=== PATIENT | female | born 1970 | race Hispanic/Latino ===

== ENCOUNTER 2018-06-04 13:31 | Emergency (ER) | payer MEDICARE, MEDICAID ==
[2018-06-04 14:43] LABS: Hemoglobin 9.2 g/dL (12.0-16.0); Mean Corpuscular HGB CONC 32.8 g/dL (32.0-36.0); Mean Corpuscular Hemoglobin 24.1 pg (27.0-31.0); Mean Corpuscular Volume 73.5 fL (78.0-98.0); Mean Platelet Volume 7.9 fL (7.4-10.4); Platelet Count 306 thou/uL (130-400); Red Blood Cell (RBC) Count 3.82 mill/uL (4.20-5.40); White Blood Cell (WBC) Count 6.8 thou/uL (4.8-10.8)
[2018-06-04 15:01] LABS: ALT (SGPT) 20 U/L (8-55); AST (SGOT) 20 U/L (5-34); Albumin 3.7 g/dL (3.5-5.0); Alkaline Phosphatase 66 U/L (40-150); Anion Gap 12 mmol/L (10-20); BUN (Urea Nitrogen) 11 mg/dL (7.0-18.7); Bilirubin, Total 0.4 mg/dL (0.2-1.2); Calc. Creatinine Clearance 0 mL/min (70-130); Calcium 8.5 mg/dL (7.8-10.44); Carbon Dioxide 20 mmol/L (22-29); Chloride 108 mmol/L (98-107); Estimated GFR-MDRD 83; Globulin 2.9 g/dL (2.4-3.5); Glucose 122 mg/dL (70-105); Potassium 3.6 mmol/L (3.5-5.1); Protein, Total 6.6 g/dL (6.0-8.3); Sodium 136 mmol/L (136-145)
[2018-06-04 15:03] LABS: #Eosinphils 0.3 thou/uL (0.0-0.7); #Lymphocytes 1.9 thou/uL (1.20-3.40); #Monocytes 0.7 thou/uL (0.11-0.59); #Neutrophils 3.9 thou/uL (1.40-6.50); %Basophils 0.3 % (0.0-1.0); %Lymphocytes 28.3 % (21.0-51.0); %Monocytes 9.7 % (0.0-10.0); %Neutrophils 57.8 % (42.0-75.0); Anisocytosis SLIGHT = 6-15 cells (100X) (0-5/hpf); Hypochromia SLIGHT = 6-15 cells (100X) (0-5/hpf); MDiff Complete? YES; Microcytosis SLIGHT = 6-15 cells (100X) (0-5/hpf); PLT Morphology Comment Appears Adequate
[2018-06-04 15:16] LABS: CK (CPK) 361 U/L (29-168); Lipase 29 U/L (8-78)
[2018-06-04 15:21] LABS: CKMB 2.4 ng/mL (0-6.6); Troponin I Less than 0.010 ng/mL (< 0.028)
--- NOTE | 2018-06-04 15:57 | RAD ---
CHEST 2 VIEWS: Date: 06/04/18 HISTORY: Dyspnea. COMPARISON: 09/07/05. FINDINGS: Cardiac silhouette and pulmonary vasculature are upper limits of normal. Mediastinum is midline. No c onfluent air space consolidation, pneumothorax, or pleural fluid. IMPRESSION: Borderline cardiomegaly. POS: [facility]
[2018-06-04 16:35] LABS: Bilirubin Negative (Negative); Blood, Urine Small (Negative); Clarity CLEAR (Clear); Glucose, Urine (Dipstick) Negative (Negative); Leukocyte Trace (Negative); Nitrite Negative (Negative); Protein, Urine (Dipstick) Negative (Neg-Trace); Urobilinogen 0.2 mg/dL (0.2-1.0)
[2018-06-04 16:37] LABS: Pathc Cast-AUWi Flag 0.29 (0-2.49)
[2018-06-04 16:46] LABS: Specific Gravity, Urine 1.003 (1.002-1.036)
[2018-06-04 16:47] LABS: RBC/HPF 0-3 HPF (0-3); Squamous Epithelial 0-3 HPF (0-3); WBC/HPF None Seen HPF (0-3)
[2018-06-04 16:48] LABS: Bacteria/HPF None Seen HPF (None Seen); Hyaline Casts/LPF NONE SEEN LPF (0-3 Hyaline)
[2018-06-04 17:55] LABS: BHCG - Serum Negative (NEGATIVE); Pregs Control Background? CLEAR/WHITE (CLR/WHITE); Pregs Control Bar Appear? YES (CONTROL BAR)
--- NOTE | 2018-06-16 11:13 | EKG ---
Test Reason : Blood Pressure : / mmHG Vent. Rate : 075 BPM Atrial Rate : 075 BPM P-R Int : 152 ms QRS Dur : 096 ms QT Int : 446 ms P-R-T Axes : 041 039 026 degrees QTc Int : 498 ms Normal sinus rhythm Normal ECG Confirmed by BERNARDINO SMITH DO ([id number]), television news video editor GIOVANNY CARVAJAL ([id number]) on 06/16/2018 11:12:33 AM Referred By: Confirmed By:BERNARDINO SMITH DO
== END 2018-06-04 19:18 | disposition home or self-care (01) ==
LOC: ERS 13:31
DX: R60.0 Localized edema (principal); F32.9 Major depressive disorder, single episode, unspecified; F41.9 Anxiety disorder, unspecified
CPT/HCPCS: 36415; 71046; 80053; 81003; 81015; 82550; 82553; 83690; 83880; 84484; 84703; 85025; 93005

== ENCOUNTER 2020-01-10 02:24 | Emergency (ER) | payer MEDICARE, MEDICAID | END 2020-01-10 02:53 | disposition home or self-care (01) | LOC: ERS 02:24 | DX: F41.9 Anxiety disorder, unspecified (principal); R73.03 Prediabetes; F20.9 Schizophrenia, unspecified | CPT/HCPCS: 99283 ==